=== PATIENT | female | born 1960 | race Caucasian/White ===

== ENCOUNTER 2024-11-11 12:52 | Outpatient (CLI) | payer BC ==
[2024-11-11 13:20] LABS: Estimated GFR - POC 82.0
== END 2024-11-11 12:53 | disposition home or self-care (01) ==
LOC: CT 12:52
PROVIDERS: ATTEND Surgery Plastic and Reconstructive Surgery
DX: Z01.818 Encounter for other preprocedural examination (principal); Z01.89 Encounter for other specified special examinations; I70.0 Atherosclerosis of aorta; I70.8 Atherosclerosis of other arteries; Z85.3 Personal history of malignant neoplasm of breast
CPT/HCPCS: 36415; 74174; 82565